=== PATIENT | female | born 1970 | race Two or more races ===

== ENCOUNTER 2020-04-14 06:05 | Day surgery (SDC) | payer OTHER ==
[2020-04-14] MEDS ORDERED: KETO10TA2 PO (10:59)
[2020-04-14] MEDS ORDERED: PERCOCET 5-3251 EACH PO (10:59)
[2020-04-14] MEDS ORDERED: RECTICARE30 GM TOP (10:59)
[2020-04-14] MEDS ORDERED: NEURONTIN300 MG PO (11:00)
== END 2020-04-14 15:10 | disposition home or self-care (01) ==
LOC: CIR.AMB 06:05
PROVIDERS: ATTEND Surgery
DX: K64.8 Other hemorrhoids (principal); K64.4 Residual hemorrhoidal skin tags